=== PATIENT | female | born 1980 ===

== ENCOUNTER 2020-09-18 08:25 | Outpatient (REF) | payer MEDICAID, SELFPAY ==
--- NOTE | 2020-09-19 15:30 | PAPFT_PTH ---
PATIENT: Tabitha Reilly LOC: [facility] U#:[id number] AGE/SX: 39/F ROOM: RE09/18/[address]: Shaista Brewer : 1980 BED: DIS: 09/18/2020 SPEC #: [id number] RECD: 09/20/20 11:37 STATUS: COLETTE REJulius #: [id number] JOANN: 09/19/20 15:[address]: Shaista Brewer DEPT: [facility] Cytology RECD BY: Rachel Shelton Tissues: 1 - CX/ENDOCX FOR PAP SMEARS Procedures: PAP THIN PREP/[facility] Screening Comments: [id number] (CHLAMYDIA/GC)
[2020-09-23 14:58] LABS: Chlamydia Result Negative (Negative); GC Result Negative (Negative)
== END 2020-09-18 08:26 | disposition home or self-care (01) ==
LOC: LBN 08:25
PROVIDERS: Visit Provider Naturopath
DX: Z11.3 Encounter for screening for infections with a predominantly sexual mode of transmission (principal); Z12.4 Encounter for screening for malignant neoplasm of cervix; Z01.419 Encounter for gynecological examination (general) (routine) without abnormal findings
CPT/HCPCS: 87491; 87591; 88142

== ENCOUNTER 2020-09-29 21:17 | Outpatient (REF) | payer MEDICAID, SELFPAY ==
[2020-10-03 11:15] LABS: Misc Referral (MAYO) See Comments
== END 2020-09-29 21:18 | disposition home or self-care (01) ==
LOC: NCHCN 21:17
PROVIDERS: Visit Provider Naturopath
DX: N76.0 Acute vaginitis (principal); N30.90 Cystitis, unspecified without hematuria
CPT/HCPCS: 87563